=== PATIENT | male | born 1930 | race Caucasian/White ===

== ENCOUNTER 2018-05-02 08:15 | Day surgery (SDC) | payer MEDICARE, OTHER ==
[2018-05-02] MEDS ORDERED: Lactated Ringers 1,000 ML IV SCH (08:30)
[2018-05-02] MEDS ORDERED: ceFAZolin 2 GM in Premix Bag 1 BAG IV ONE (10:00)
--- NOTE | 2018-05-02 13:08 | HP ---
ADMISSION DATE: 05/02/2018 This patient presented this morning for laparoscopic cholecystectomy. He has a symptomatic cholelithiasis with recent episode of biliary colic. The patient was noted on preoperative evaluation this morning to have an irregular heartbeat which was a new finding for him. An EKG was obtained which shows atrial flutter. The patient is asymptomatic with no chest pain or shortness of breath. He thinks he may have felt some palpitations about five days ago, but does not feel any abnormalities this morning. Review of past history shows previous EKGs to be in sinus rhythm without any atrial flutter. With this new cardiac finding, even though the patient is asymptomatic, I have recommended that we postpone surgery until he can have cardiac evaluation. Currently, he is asymptomatic from the gallbladder, and he is advised to stay on a low-fat diet to minimize risk of having another attack before he can be cleared for surgery. We carefully discussed with the patient and his family the rationale for postponing his surgery today explaining to them that it is in the interest of patient safety, and they expressed understanding of this plan. We will make an appointment for him to be seen in the Internal Medicine Department at the [facility] in [place] as soon as possible and an appointment made for tomorrow. We will await his cardiac evaluation, and once he is cleared from a cardiac standpoint to proceed with surgery, we will still plan for laparoscopic cholecystectomy if his cardiac disease is not too severe. /[id number] FRANCIE/JOSEPH
== END 2018-05-02 10:00 | disposition home or self-care (01) ==
LOC: FB.SDS 08:15
PROVIDERS: ATTEND Surgery
DX: K80.10 Calculus of gallbladder with chronic cholecystitis without obstruction (principal); Z53.8 Procedure and treatment not carried out for other reasons; I12.9 Hypertensive chronic kidney disease with stage 1 through stage 4 chronic kidney disease, or unspecified chronic kidney disease; N18.3 Chronic kidney disease, stage 3 (moderate); I48.92 Unspecified atrial flutter; E78.5 Hyperlipidemia, unspecified; M19.90 Unspecified osteoarthritis, unspecified site; I71.4 Abdominal aortic aneurysm, without rupture; Z79.82 Long term (current) use of aspirin; Z79.899 Other long term (current) drug therapy
CPT/HCPCS: 93005

== ENCOUNTER 2018-05-04 10:53 | Day surgery (SDC) | payer MEDICARE, OTHER ==
[2018-05-04] MEDS ORDERED: Sugammadex Sodium 200 MG/2 ML VIAL IV ONE (10:54)
[2018-05-04] MEDS ORDERED: Etomidate 2 MG/ML 20 ML SDV IVPUSH ONE (10:54)
[2018-05-04] MEDS ORDERED: fentaNYL 100 MCG/2 ML SDV IV ONE (10:54)
[2018-05-04] MEDS ORDERED: Rocuronium 100 MG/10 ML MDV IV ONE (10:54)
[2018-05-04] MEDS ORDERED: Ondansetron 4 MG/2 ML SDV IVPUSH ONE (10:54)
[2018-05-04] MEDS ORDERED: Acetaminophen 1,000 MG/100 ML Infusion Bottle IV ONE (10:54)
[2018-05-04] MEDS ORDERED: Lactated Ringers 1,000 ML IV SCH (11:15)
[2018-05-04] MEDS ORDERED: ceFAZolin 2 GM in Premix Bag 1 BAG IV ONE (12:30)
--- NOTE | 2018-05-04 12:53 | PCM.PN ---
- General Info Date of Service: 05/04/18 - Review of Systems Systems Review Comment:: 87 y/o male here for cholecystectomy. He was scheduled 2 days ago but was cancelled at that time because of abnormal EKG. He has been seen by post form remover who has given clearance to proceed with cholecystectomy under general anesthesia. Patient stable with no clinical changes in the last 2 days. Proposed cholecystectomy again discussed with patient and family. Questions answered and he agrees to proceed. - Patient Data Vitals - Most Recent: Last Vital Signs Temp 98.9 F 05/04/18 11:51 Pulse 86 05/04/18 11:51 Resp 16 05/04/18 11:51 BP 150/93 H 05/04/18 11:51 Pulse Ox 95 05/04/18 11:51 Weight - Most Recent: 189 lb Med Orders - Current: Current Medications Cefazolin Sodium/Dextrose 2 gm (/ Premix) 50 mls @ 100 mls/hr IV ONETIME ONE Stop: 05/04/18 12:59 Last Admin: 05/04/18 12:41 Dose: 100 mls/hr Lactated Ringer's (Ringers, Lactated) 1,000 mls @ 125 mls/hr IV ASDIRECTED [facility] Last Admin: 05/04/18 12:08 Dose: 125 mls/hr - Problem List Review Problem List Initiated/Reviewed/Updated: Yes - My Orders Last 24 Hours: My Active Orders 05/03/18 Dinner Nothing Per Oral Diet [DIET] 05/04/18 11:15 Patient Status [ADT] Routine Patient to Empty Bladder [RC] ASDIRECTED RT Incentive Spirometry [RC] ASDIRECTED Verify Patient Consent Obtain [RC] ASDIRECTED Lactated Ringers [Ringers, Lactated] 1,000 ml IV ASDIRECTED Peripheral IV Insertion Adult [OM.PC] Routine Sequential Compression Device [OM.PC] Routine 05/04/18 12:30 ceFAZolin [Ancef] 2 gm Premix Bag 1 bag IV ONETIME - Assessment Assessment:: Symptomatic cholelithiasis - Plan Plan:: Cholecystectomy
[2018-05-04] MEDS ORDERED: Bupivacaine 0.5%/EPINEPHrine 1:200,000 50 ML MDV ONE (13:08)
--- NOTE | 2018-05-04 14:07 | PCM.OPNOTE ---
- General Post-Op/Procedure Note Date of Surgery/Procedure: 05/04/18 Operative Procedure(s): Laparoscopic Cholecystectomy Findings: Chronically inflamed gallbladder with large stone Pre Op Diagnosis: Symptomatic cholelithiasis Post-Op Diagnosis: Same Anesthesia Technique: General ET Tube Primary Surgeon: Daniel Louise Pathology: Gallbladder with stone Output, Urine Amount: 0 EBL in mLs: 10 Complications: None Condition: Good
--- NOTE | 2018-05-04 15:13 | OR ---
DATE OF OPERATION: 05/04/2018 SURGEON: Daniel Louise MD PREOPERATIVE DIAGNOSIS: Symptomatic cholelithiasis. POSTOPERATIVE DIAGNOSES: Symptomatic cholelithiasis with chronic cholecystitis. OPERATION PERFORMED: Laparoscopic cholecystectomy. INDICATIONS FOR SURGERY: This 87-year-old male had a recent episode of severe right upper quadrant abdominal pain. Workup has identified cholelithiasis, and he comes for cholecystectomy. FINDINGS: The gallbladder contains a solitary large stone. There are extensive fatty tissue adhesions to the undersurface of the liver, indicative of chronic inflammation. The adjacent liver and other organs as viewed laparoscopically appeared satisfactory. PROCEDURE IN DETAIL: The patient was taken to the operating room. He was given general endotracheal anesthesia, and the abdomen was sterilely prepped and draped. An infraumbilical stab wound incision was made and through this, a Veress needle was inserted and pneumoperitoneum via this needle, to a pressure of 15 mmHg, was achieved with carbon dioxide. The Veress needle was replaced with a 12-mm trocar into which the 5-mm variable-angled laparoscopic camera was inserted. Under direct visualization, 5 mm trocars were placed in the subxiphoid midline and in two areas of the right abdomen. All trocar sites were infiltrated with Marcaine prior to incision. Intra-abdominal inspection was carried out and attention was turned to the gallbladder. It was secured with grasping forceps, placed through the lateral trocars, and retracted superiorly and anteriorly. The adhesions to the undersurface of the gallbladder were carefully taken down using blunt and cautery dissection. Once the lower part of the gallbladder was exposed, careful dissection was carried out to identify the cystic duct and the triangle of Calot was explored to identify the cystic artery. Two branches of the cystic artery were isolated, and these were both doubly clipped and divided. The triangle of Calot was cleared. Once the cystic duct had been completely exposed and clearly identified, it was milked and it was doubly clipped and divided near the gallbladder with great care being used to avoid injury or compromise to the common bile duct. The gallbladder was then dissected free from the undersurface of the liver using the hook cautery device. Once the gallbladder was completely freed, it along with the gallstone was extracted through the umbilical trocar site. Reinspection of the gallbladder bed was carried out. Good hemostasis appeared to be maintained and with no sign of any bleeding or any other complication. The trocars were removed under direct visualization, and the pneumoperitoneum was evacuated. The fascia of the umbilical trocar site was closed with a [id number] Vicryl suture. Wounds were irrigated with Betadine and saline solution. Skin incisions approximated with interrupted 4-0 Vicryl in a subcuticular stitch. Steri-Strips and benzoin were applied. Antibiotic ointment and sterile dressings were placed. The patient was awakened, extubated, and taken from the operating room in satisfactory condition. ESTIMATED BLOOD LOSS: 10 mL. COMPLICATIONS: None. PROGNOSIS: Good. /[id number] FRANCIE/JOSEPH
== END 2018-05-04 15:40 | disposition home or self-care (01) ==
LOC: FB.SDS 10:53
PROVIDERS: ATTEND Surgery
DX: K80.10 Calculus of gallbladder with chronic cholecystitis without obstruction (principal); I12.9 Hypertensive chronic kidney disease with stage 1 through stage 4 chronic kidney disease, or unspecified chronic kidney disease; N18.3 Chronic kidney disease, stage 3 (moderate); M19.90 Unspecified osteoarthritis, unspecified site; E78.5 Hyperlipidemia, unspecified; I71.4 Abdominal aortic aneurysm, without rupture; Z79.82 Long term (current) use of aspirin; Z79.899 Other long term (current) drug therapy
CPT/HCPCS: 00790; 47562; 88304; C9399; J0131; J0690; J2405; J3010; J3490; J7120